=== PATIENT | male | born 1985 | race African-American/Black ===

== ENCOUNTER 2019-03-22 23:38 | Emergency (ER) | payer MEDICAID ==
[~2019-03-22] VITALS: Ht 167.6 cm; Wt 114.0 kg
[2019-03-23] MEDS ORDERED: IPRATROPIUM BROMIDE (0.02%) 0.5MG/2.5ML NEB HHN STA (00:45)
[2019-03-23] MEDS ORDERED: ALBUTEROL (0.083%) 2.5MG/3ML NEB HHN STA (00:45)
[2019-03-23 00:48] VITALS: BP 136/82
== END 2019-03-23 04:35 | disposition left against medical advice (07) ==
LOC: ER 23:38
DX: J20.9 Acute bronchitis, unspecified (principal); F17.200 Nicotine dependence, unspecified, uncomplicated; F12.10 Cannabis abuse, uncomplicated
CPT/HCPCS: 71045; 93005; 99283; J7611

== ENCOUNTER 2020-02-27 03:30 | Emergency (ER) | payer MEDICAID, OTHER ==
[~2020-02-27] VITALS: Ht 170.2 cm; Wt 112.0 kg
[2020-02-27] MEDS ORDERED: HYDROCODONE/ACETAMINOPHEN 10/325MG TABLET PO ONE (04:15)
[2020-02-27] MEDS ORDERED: TETANUS, DIPHTHERIA, PERTUSSIS VAC/PF 0.5ML (>7YR OLD) IM ONE (04:15)
[2020-02-27 04:35] VITALS: BP 134/86
== END 2020-02-27 04:38 | disposition home or self-care (01) ==
LOC: ER 03:30
DX: S01.511A Laceration without foreign body of lip, initial encounter (principal); W50.0XXA Accidental hit or strike by another person, initial encounter; Y93.89 Activity, other specified; Y92.89 Other specified places as the place of occurrence of the external cause; Y99.8 Other external cause status; F12.10 Cannabis abuse, uncomplicated
CPT/HCPCS: 90471; 90715; 99283

== ENCOUNTER 2022-07-20 13:03 | Emergency (ER) | payer OTHER | END 2022-07-20 16:09 | disposition left against medical advice (07) | LOC: ER 13:08 | DX: Z53.21 Procedure and treatment not carried out due to patient leaving prior to being seen by health care provider (principal) | CPT/HCPCS: 99281 ==